=== PATIENT | male | born 1970 | race Two or more races ===

== ENCOUNTER 2019-08-10 09:47 | Inpatient (IN) | payer MEDICAID ==
[~2019-08-10] VITALS: Ht 180.3 cm; Wt 84.4 kg
[2019-08-10] MEDS ORDERED: MORPHINE SULFATE INJ 2 MG/ML DISP.SYRIN IV ONE ×2 (10:00→12:00)
[2019-08-10] MEDS ORDERED: ONDANSETRON HCL/PF 4 MG/2 ML VIAL IVP ONE (10:00)
--- NOTE | 2019-08-10 10:05 | NUR ---
called Dr. Grant - spoke to - case presented, Dr. Grant advised for ortho consult Paged OSCAR Darnell
[2019-08-10] MEDS ORDERED: ONDANSETRON HCL/PF 4 MG/2 ML VIAL ONE (10:07)
[2019-08-10] MEDS ORDERED: MORPHINE SULFATE INJ 4 MG/ML DISP.SYRIN ONE ×2 (10:08→11:34)
[2019-08-10 10:10] LABS: BASOPHILS # (AUTO) 0.1 /CMM (0.0-0.2); BASOPHILS % (AUTO) 1.1 % (0.0-2.0); EOSINOPHILS % (AUTO) 3.3 % (0.0-6.0); HEMATOCRIT 47 % (39-51); HEMOGLOBIN 16.1 g/dL (13.5-17.5); LYMPHOCYTES # (AUTO) 4.9 /CMM (0.8-4.8); LYMPHOCYTES % (AUTO) 40.9 % (20.0-44.0); MEAN CORPUSCULAR HGB CONC 34 g/dl (31.0-36.0); MEAN CORPUSCULAR VOLUME 89 fL (80-96); MONOCYTES # (AUTO) 1.2 /CMM (0.1-1.30); MONOCYTES % (AUTO) 9.8 % (2.0-12.0); NEUTROPHILS # (AUTO) 5.4 /CMM (1.8-8.9); NEUTROPHILS % (AUTO) 44.9 % (43.0-81.0); PLATELET COUNT (AUTO) 274 /CMM (150-450); RED BLOOD CELL COUNT(AUTO) 5.24 MIL/uL (4.5-6.0)
[2019-08-10 10:18] LABS: CALCIUM, SERUM 8.6 mg/dL (8.5-10.1); CREATININE 1.3 mg/dL (0.6-1.3); POTASSIUM 3.4 mmol/L (3.5-5.1)
[2019-08-10] MEDS ORDERED: CEFAZOLIN 1 GM in IV D5W 50 ML IV ONE (10:30)
--- NOTE | 2019-08-10 10:41 | NUR ---
ortho consult : OSCAR Landrum - again
--- NOTE | 2019-08-10 10:46 | NUR ---
room 308-1
--- NOTE | 2019-08-10 10:57 | NUR ---
called [facility] identification and records commander - Derian Weber DNP via exchange
--- NOTE | 2019-08-10 11:08 | NUR ---
Chance gallardo in [facility] - 08/10/19 at 1110 by TANO REPORT GIVEN TO AMY HALL
--- NOTE | 2019-08-10 11:08 | NUR ---
REPORT GIVEN TO AMY YOUNGER. PATIENT TO BE SENT TO ROOM 308 BED 1.
--- NOTE | 2019-08-10 11:21 | NUR ---
TIAGO MOORE PAGED FOR ORTHO CONSULT
--- NOTE | 2019-08-10 11:49 | NUR ---
REPAGED YARED JOE WAS PAGED TO CALL
--- NOTE | 2019-08-10 12:35 | NUR ---
report given to CARISA Hammer by Morgan YOUNGER.
[2019-08-10 13:00] VITALS: BP 148/77
[2019-08-10] MEDS ORDERED: ONDANSETRON HCL/PF 4 MG/2 ML VIAL IVP PRN (13:00)
[2019-08-10] MEDS ORDERED: ACETAMINOPHEN 325 MG TABLET PO PRN (13:00)
[2019-08-10] MEDS ORDERED: CEFAZOLIN 2 GM in IV D5W 100 ML IV SCH (13:00)
[2019-08-10] MEDS ORDERED: Z GUARD REMEDY 2 OZ OINT TP PRN (13:00)
--- NOTE | 2019-08-10 13:00 | NUR ---
MS RN NOTES PATIENT ARRIVED AT UNIT VIA GURNEY, REPORT RECEIVED FROM KARLA YOUNGER. PATIENT AWAKE, ALERT AND ORIENTED X 4, VERBALLY RESPONSIVE AND RESPONDS TO VERBAL AND TACTILE SITMULI. NO ACUTE DISTRESS. NO CHANGES IN LOC NOTED AT THIS TIME. DRESSING INTACT ON RIGHT UPPER ARM, NO ACTIVE BLEEDING NOTED ON DRESSING. PATIENT ADMITTED UNDER MEDICAL SUPERVISION OF DR RONEY VOGEL, AWARE OF PATIENT ARRIVAL. PATIENT AND SON AT BEDSIDE ORIENTED TO UNIT, STAFF, PLAN OF CARE AND VERBALIZED UNDERSTANDING. WILL CONTINUE TO MONITOR. BED LOCKED AND IN LOW POSITION. BILATERAL UPPER SIDE RAILS UP AND LOCKED. CALL LIGHT WITHIN EASY REACH
[2019-08-10] MEDS: MORPHINE SULFATE INJ 2 MG/ML DISP.SYRIN IV PRN ×2 (13:52→22:22)
--- NOTE | 2019-08-10 13:57 | NUR ---
MS RN NOTES PATIENT SEEN AND EXAMINED BY DR RONEY VOGEL. PATIENT'S WOUND ON RIGHT UPPER ARM SEEN BY MD. WITH OK FROM DR VOGEL TO GIVE MORPHINE IV PRN ORDERED, MADE AWARE OF LAST ADMINISTRATION OF MORPHINE AT 1130 AT ER AND GAVE OK. MEDICATION ADMINISTERED ORDERED. PICTURE OF LEFT UPPER ARM WOUND TAKEN WHILE BEING ASSESSED BY DR VOGEL. WILL CONTINUE TO MONITOR
[2019-08-10 16:13] VITALS: BP 123/58
[2019-08-10] MEDS ORDERED: POTASSIUM CHLORIDE 20 MEQ TAB.PRT.SR PO ONE (17:15)
[2019-08-10] MEDS: CEFAZOLIN 2 GM in IV D5W 100 ML IV SCH (18:09)
[2019-08-10] MEDS: IV LR 1000 ML 1,000 ML IV PRN (18:11)
--- NOTE | 2019-08-10 19:00 | NUR ---
MS RN NOTES PATIENT RESTING INSIDE ROOM. AWAKE, ALERT AND ORIENTED X 4, VERBALLY RESPONSIVE AND RESPONDS TO VERBAL AND TACTILE STIMULI. BREATHING EVEN AND UNLABORED. NO ACUTE DISTRESS NOTED AT THIS TIME. PATIENT WITH PLAN FOR SURGERY IN AM. VERIFIED INFORMED CONSENT OBTAINED BY MD FROM PATIENT AND WITNESSED BY LICENSED STAFF. RECEIVED CALL FROM NURSING SUPERVISION THAT PROCEDURE IS SCHEDULED AT 0900 08/11/19. PATIENT MADE AWARE AND VERBALIZED UNDERSTANDING. PATIENT KEPT CLEAN, DRY AND COMFORTABLE. WILL ENDORSE TO INCOMING SHIFT FOR YUE. BED LOCKED AND IN LOW POSITION. BILATERAL UPPER SIDE RAILS UP AND LOCKED. CALL LIGHT WITHIN EASY REACH
--- NOTE | 2019-08-10 20:01 | NUR ---
MS RN NOTES RECEIVED PATIENT AWAKE IN BED WITH NO DISTRESS NOTED. CALL LIGHT WITHIN REACH. DRESSING ON ELIAZAR LACERATION CLEAN, DRY. AND INTACT. NO C/O PAIN OR DISCOMFORT. PERIPHERAL LINE INTACT AND PATENT. ENCOURAGED USE OF CALL LIGHT FOR ASSISTANCE AND VERBALIZED GOOD UNDERSTANDING. BED IN LOW LOCK SETTING. ROOM FREE OF CLUTTER AND BELONGINGS KEPT NEAR BEDSIDE. WILL CONTINUE TO MONITOR.
[2019-08-10 20:23] VITALS: BP 120/78
[2019-08-11] MEDS: CEFAZOLIN 2 GM in IV D5W 100 ML IV SCH ×3 (02:36→18:09)
--- NOTE | 2019-08-11 06:24 | NUR ---
MS RN NOTES PATIENT ASLEEP IN BED WITH NO DISTRESS NOTED. CALL LIGHT WITHIN REACH. ALL DUE MEDS GIVEN ORDERED WITH NO ASE. PERIPHERAL LINE INTACT AND PATENT. NPO STATUS OBSERVED AND MAINTAINED. DRESSING ON ELIAZAR LACERATION CLEAN, DRY, AND INTACT. CONSENTS SIGNED AND CHECKLIST INITIATED. NO FURTHER C/O PAIN OR DISCOMFORT. BED IN LOW LOCK SETTING. ROOM FREE OF CLUTTER AND BELONGINGS KEPT NEAR BEDSIDE. WILL ENDORSE TO ONCOMING SHIFT.
[2019-08-11 06:30] LABS: BASOPHILS % (AUTO) 0.4 % (0.0-2.0); EOSINOPHILS % (AUTO) 2.1 % (0.0-6.0); HEMATOCRIT 42 % (39-51); HEMOGLOBIN 14.3 g/dL (13.5-17.5); LYMPHOCYTES # (AUTO) 2.4 /CMM (0.8-4.8); LYMPHOCYTES % (AUTO) 21.4 % (20.0-44.0); MEAN CORPUSCULAR HGB CONC 34 g/dl (31.0-36.0); MEAN CORPUSCULAR VOLUME 88 fL (80-96); MONOCYTES # (AUTO) 1.2 /CMM (0.1-1.30); MONOCYTES % (AUTO) 10.2 % (2.0-12.0); NEUTROPHILS # (AUTO) 7.5 /CMM (1.8-8.9); NEUTROPHILS % (AUTO) 65.9 % (43.0-81.0); PLATELET COUNT (AUTO) 209 /CMM (150-450); RED BLOOD CELL COUNT(AUTO) 4.74 MIL/uL (4.5-6.0); WHITE BLOOD COUNT (AUTO) 11.3 K/uL (4.3-11.0)
[2019-08-11 06:55] LABS: THYROID STIMULATING HORMONE 2.371 uIU/mL (0.358-3.74)
[2019-08-11 07:00] LABS: ALBUMIN 3.1 g/dL (3.4-5.0); BILIRUBIN,TOTAL 0.5 mg/dL (0.2-1.0); CALCIUM, SERUM 8.2 mg/dL (8.5-10.1); CREATININE 0.9 mg/dL (0.6-1.3); MAGNESIUM 1.8 mg/dL (1.8-2.4); PHOSPHORUS 2.7 mg/dL (2.5-4.9); POTASSIUM 4.1 mmol/L (3.5-5.1); TOTAL PROTEIN, SERUM 6.8 g/dL (6.4-8.2)
--- NOTE | 2019-08-11 07:20 | NUR ---
MS/RN OPENING NOTES RECEIVED PATIENT BED RESTIN COMFORTABLE. EASILY AROUSABLE. NO PAIN OR ACUTE DISTRESS AT THIS TIME. RESPIRATION EVEN AND UNLABORED. SKIN IS DRY WARM TO TOUCH. PATIENT ON ROOM AIR, TOLERATING WELL. DRESSING ON ELIAZAR LACERATION CLEAN, DRY. AND INTACT. NOTED WITH IV ACCESS ON L WRIST. INTACT AND PATENT. FLUSHING WELL. NO S/S OF INFECTION OR INFILTRATION. ALL NEEDS ANTICIPATED. KEPT CLEAN AND DRY. CALL LIGHT WITHIN REACHED. SAFETY MAINTAINED. BED LOCKED AND IN LOWEST POSITION. PLAN OF CARE DISCUSSED. WILL CONTINUE TO MONITOR CLOSELY.
[2019-08-11 08:00] VITALS: BP 127/81
--- NOTE | 2019-08-11 08:45 | NUR ---
MS/RN NOTES PATIENT WAS PICKED UP BY NURSES FROM SURGERY TO DO HIS PROCEDURE. PATIENT LEFT THE UNIT IN STABLE CONDITION. AWAITING FOR THE PATIENTS RETURN.
[2019-08-11] MEDS ORDERED: BACITRACIN OPHTH OINT 3.5 GM TUBE ONE (10:05)
[2019-08-11] MEDS ORDERED: HYDROMORPHONE INJ 2 MG/ML DISP.SYRIN ONE (10:19)
[2019-08-11] MEDS ORDERED: KETOROLAC TROMETHAMINE INJ 30 MG/ML VIAL ONE (10:21)
[2019-08-11] MEDS ORDERED: HYDROCODONE/APAP 5/325MG 1 EACH TABLET PO PRN (10:30)
[2019-08-11] MEDS ORDERED: HYDROCODONE/APAP 10/325MG 1 EA TABLET PO PRN ×2 (10:30→12:30)
--- NOTE | 2019-08-11 11:15 | NUR ---
MS/RN NOTES PATIENT RETURNED FROM HIS SURGERY. PATIENT WAS ABLE TO TOLERATE PROCEDURE WELL ACCORDING TO THE SURGERY NURSE. PATIENT REMAINS IN STABLE CONDITION. WILL CONTINUE TO MONITOR CLOSELY.
--- NOTE | 2019-08-11 11:19 | NUR ---
MS/RN NOTES MEDICATION ANCEF WAS GIVEN AT SURGERY AROUND 9:15AM ACCORDING TO THE SURGERY NURSE WHEN PATIENT WAS RETURNED TO THE UNIT. WILL CONTINUE TO MONITOR PATIENT.
--- NOTE | 2019-08-11 11:20 | NUR ---
MS/RN NOTES ACCORDING TO PACU NURSE TO CONTINUE PREVIOUS ORDERS OF LR FLUIDS PER DR. LONGO. PATIENT CONTINUES TO REMAIN IN STABLE CONDITION. WILL CONTINUE TO MONITOR.
--- NOTE | 2019-08-11 11:21 | NUR ---
MS/RN NOTES RECEIVED ORDERS FROM DR. LONGO AFTER PROCEDURE. ALL ORDERS NOTED AND CARRIED OUT. DISCUSSED WITH PACU NURSE ENDORSING THE PATIENT. PATIENT REMAINS IN STABLE CONDITION. WILL CONTINUE TO MONITOR CLOSELY.
[2019-08-11] MEDS: IV LR 1000 ML 1,000 ML IV PRN (11:49)
[2019-08-11] MEDS ORDERED: HYDROMORPHONE 1 MG/1 ML DISP.SYRIN IV PRN (12:30)
[2019-08-11 16:00] VITALS: BP 125/80
--- NOTE | 2019-08-11 18:47 | NUR ---
MS/RN CLOSING NOTES PATIENT CONTINUES TO REMAIN IN STABLE CONDITION THROUGHOUT THE SHIFT. PROVIDED COMFORT AND SAFETY. PATIENT WAS ABLE TO TOLERATE PROCEDURE WELL. NO PAIN AT THIS TIME. SLING WAS IN PLACE ON RIGHT ARM. NOTED WITH IV ACCESS ON L WRIST. INTACT AND PATENT. FLUSHING WELL. NO S/S OF INFECTION OR INFILTRATION. ALL NEEDS ANTICIPATED. KEPT CLEAN AND DRY. CALL LIGHT WITHIN REACHED. SAFETY MAINTAINED. BED LOCKED AND IN LOWEST POSITION. WILL CONTINUE TO MONITOR CLOSELY. ENDORSED TO PM SHIFT FOR YUE.
--- NOTE | 2019-08-11 19:00 | NUR ---
RN isabel opening notes Received Pt from morning nurse. Pt is resting in bed comfortably. Pt is alert and oriented X4. Respiration is normal. No SOB. No nausea or vomiting. Pt denies any pain or discomfort at this time. Right sling on right arm is intact, clean and keep elevated. Skin warm to touch and able to wiggle his fingers. IV sites at Left wrist # 18 is clean, intact, patent and infusing well LR @ 80ml/hr. Instructed to call. Safety precautions is maintained. Bed at low position, side rails upX2, brakes locked, call light is within reach. Will continue to monitor and assist all needs.
[2019-08-11 20:00] VITALS: BP 123/90
[2019-08-11 20:40] VITALS: BP 123/90
--- NOTE | 2019-08-11 21:21 | NUR ---
CARISA medsurkenny notes Pt is complaining of pain on ELIAZAR. Administered [place] 5-325mg/1 Tab/PO as ordered for pain 6/10 on pain scale per Pt request. Applied ice pack to ELIAZAR and keep elevated. Instructed to call. Will continue to monitor.
--- NOTE | 2019-08-12 | NUR ---
RN medsurg notes Pt is sleeping in bed comfortably. Awaken easily. Pt denies any pain or discomfort at this time. No S/S of distress noted. Ice pack still applied at ELIAZAR for comfort and keep elevated. Will continue to monitor.
[2019-08-12] MEDS: CEFAZOLIN 2 GM in IV D5W 100 ML IV SCH ×2 (01:24→09:19)
[2019-08-12] MEDS: IV LR 1000 ML 1,000 ML IV PRN (02:00)
--- NOTE | 2019-08-12 06:47 | NUR ---
RN medsurg notes Pt is alert and orientedX4. Pt is resting in bed comfortably. No SOB. No S/S of distress noted. IV sites is clean, patent, intact and infusing well LR @ 80 ml/hr. Routine meds were given as ordered. VS is stable. Right sling in ELIAZAR is intact, patent and keep it elevated. All needs attended and anticipated. Kept Pt warm, dry and comfortable. Safety precautions is maintained. Bed at low position, brakes locked, side rails upX2 and call light is within reach. Will endorse to morning nurse for YUE.
--- NOTE | 2019-08-12 07:20 | NUR ---
MS RN OPENING NOTES RECEIVED PATIENT BED RESTING COMFORTABLY IN MODERATE HIGH BACK REST. A/O X 4. NO PAIN OR ACUTE DISTRESS NOTED AT THIS TIME. RESPIRATION EVEN AND UNLABORED. DRESSING ON ELIAZAR LACERATION CLEAN, DRY. AND INTACT. NOTED WITH IV FLUIDS ON L WRIST #18 WITH LR @ 80ML/HR. INTACT AND PATENT. SAFETY MEASURES IN PLACE, BED LOCKED AND IN LOWEST POSITION WITH SIDERAILS UP X2. CALL LIGHT WITHIN REACH. WILL CONTINUE TO MONITOR.
[2019-08-12 07:30] VITALS: BP 117/78
[2019-08-12 07:39] LABS: CALCIUM, SERUM 8.3 mg/dL (8.5-10.1); CREATININE 0.8 mg/dL (0.6-1.3); MAGNESIUM 1.8 mg/dL (1.8-2.4); PHOSPHORUS 2.8 mg/dL (2.5-4.9); POTASSIUM 3.9 mmol/L (3.5-5.1)
--- NOTE | 2019-08-12 12:50 | NUR ---
RN DISCHARGED NOTES PATIENT DISCHARGED IN STABLE CONDITION. A/O X 4. ABLE TO MAKE NEEDS KNOWN. V/S TAKEN, STABLE AND RECORDED. PATIENT'S IV REMOVED AND APPLIED PRESSURE DRESSINGS. REFUSED TAKING PICTURES OF WOUND. NAME ARM BAND REMOVED. ALL BELONGINGS CHECKED AND SIGNED. PRESCRIPTION MEDICATION GIVEN TO PATIENT. HEALTH TEACHINGS/ DISCHARGED INSTRUCTIONS GIVEN AND VERBALIZED UNDERSTANDING. PATIENT LEFT UNIT AMBULATORY WITH MARK (SON) WITH NO ACUTE DISTRESS. CHARGE NURSE AWARE OF DISCHARGED.
== END 2019-08-12 12:40 | disposition home or self-care (01) | DRG 317 ==
LOC: ER 09:49 → MED 12:35
PROVIDERS: ADMIT Nurse Practitioner Acute Care; ATTEND Internal Medicine
PROC: 0KB70ZZ Excision of Right Upper Arm Muscle, Open Approach (ICD-10-PCS; principal; 2019-08-11)
DX: S46.22 Laceration of muscle, fascia and tendon of other parts of biceps (principal); D72.829 Elevated white blood cell count, unspecified; E78.5 Hyperlipidemia, unspecified; E87.6 Hypokalemia; Y92.9 Unspecified place or not applicable; L03.114 Cellulitis of left upper limb; W01.111A Fall on same level from slipping, tripping and stumbling with subsequent striking against power tool or machine, initial encounter
CPT/HCPCS: 36415; 73060-TC; 80048-TC; 80053-TC; 80061-TC; 83735-TC; 84100-TC; 84443-TC; 85025-TC; 85730-TC; 86850-TC; 87081-TC; A6253; G0378; J0690; J1100; J1170; J1885; J2270; J2405; J2704; J7060; J7120